=== PATIENT | female | born 1950 | race Caucasian/White ===

== ENCOUNTER 2017-07-25 23:38 | Inpatient (IN) | payer OTHER ==
[~2017-07-25] VITALS: Ht 157.5 cm; Wt 134.0 kg
[~2017-07-25 23:38] MED LIST: ADVAIR 250/501 DISK IH; ATARAX,VISTARIL25 MG PO; BUSPAR15 MG PO; BUSPIRONE HCL10 MG PO; FLEXERIL10 MG PO; FUROSEMIDE20 MG PO; GABAPENTIN300 MG PO; K-TAB10 MEQ PO; LEXAPRO20 MG PO; MELOXICAM15 MG PO; METOPROLOL TART25 MG PO; NAPROSYN500 MG PO; PRAVACHOL20 MG PO; PREDNISONE50 MG PO; PRINZIDE 10-121 EACH PO; PROVENTIL17 GM IH; SEROQUEL50 MG PO; TRAZODONE HCL50 MG PO; ZANTAC300 MG PO
[2017-07-26 04:56] LABS: SERUM ETHYL ALCOHOL < 10 mg/dL
[2017-07-26 06:01] LABS: BASOPHIL (%) 0.5 % (0-1); EOSINOPHIL (%) 3.2 % (0-5); EOSINOPHIL COUNT 0.2 K/uL (0-0.3); HEMOGLOBIN 13.7 G/DL (11.9-15.5); IMMATURE GRANULOCYTE (%) 0.1 % (0.0-0.7); LYMPHOCYTE (%) 35.5 % (15-42); LYMPHOCYTE COUNT 2.7 K/uL (1.0-2.8); MCH 33.1 PG (29.0-34.0); MCHC 34.3 G/DL (30.0-36.0); MCV 96.6 FL (83-99); MONOCYTE (%) 6.9 % (3-12); MONOCYTE COUNT 0.5 K/uL (0-0.8); NEUTROPHIL (%) 53.8 % (45-76); PLATELET COUNT 267 K/uL (156-360); RBC DIS.WIDTH-CV 12.3 % (11.8-14.6); RBC DIS.WIDTH-SD 43.7 % (39-53); RED BLOOD COUNT 4.14 M/uL (3.80-5.20); WHITE BLOOD COUNT 7.5 K/uL (4.1-10.2)
[2017-07-26 06:05] LABS: CHLORIDE 104 mEq/L (99-109); POTASSIUM 3.8 mEq/L (3.7-5.4); SODIUM 140 mEq/L (136-147)
[2017-07-26 06:07] LABS: GLUCOSE 94 mg/dL (70-99)
[2017-07-26 06:11] LABS: CREATININE 0.8 mg/dL (0.6-1.3); GFR ESTIMATE (CALCULATED) > 59 mL/min/
[2017-07-26 06:12] LABS: UREA NITROGEN (BUN) 17 mg/dL (9-23)
[2017-07-26] MEDS ORDERED: BRINTELLIX20 MG PO (09:00)
[2017-07-26] MEDS ORDERED: TRAZODONE HCL50 MG PO (09:00)
[2017-07-26 09:01] VITALS: BP 158/74
[2017-07-26] MEDS ORDERED: HYDROCODON-ACE1 EAC9 PO (09:01)
[2017-07-26] MEDS ORDERED: ATORVASTATIN CA10 MG PO (09:02)
[2017-07-26] MEDS ORDERED: MONTELUKAST SOD10 MG PO (09:02)
[2017-07-26] MEDS ORDERED: GABAPENTIN600 MG PO (09:03)
[2017-07-26] MEDS ORDERED: HYDROCHLOROTHIA25 MG PO (09:03)
[2017-07-26 11:15] VITALS: BP 143/87
[2017-07-27 08:03] VITALS: BP 120/68
[2017-07-27 15:31] VITALS: BP 135/65
[2017-07-28 08:03] VITALS: BP 143/77
== END 2017-07-28 11:26 | disposition home or self-care (01) | DRG 882 ==
LOC: EME 23:38 → 1WEST 07-26 05:49 → EDOF 07-26 05:49 → ENRESERV 07-26 08:00 → 1WEST 07-26 08:29
PROVIDERS: Emergency Medicine
DX: F43.25 Adjustment disorder with mixed disturbance of emotions and conduct (principal); R45.850 Homicidal ideations; R45.851 Suicidal ideations; F31.9 Bipolar disorder, unspecified; J44.9 Chronic obstructive pulmonary disease, unspecified; E66.01 Morbid (severe) obesity due to excess calories; Z68.43 Body mass index [BMI] 50.0-59.9, adult; I11.0 Hypertensive heart disease with heart failure; I50.9 Heart failure, unspecified; E78.5 Hyperlipidemia, unspecified; F43.10 Post-traumatic stress disorder, unspecified; F41.0 Panic disorder [episodic paroxysmal anxiety]; F17.200 Nicotine dependence, unspecified, uncomplicated; M54.9 Dorsalgia, unspecified
CPT/HCPCS: 80048; 85025; 90839; 94640; 94640 76; 97150 GO; 97165 GO; 99202; 99281; 99285; G0480